=== PATIENT | male | born 1960 | race Caucasian/White ===

== ENCOUNTER 2019-12-27 09:30 | Inpatient (IN) | payer SELFPAY ==
[~2019-12-27] VITALS: Ht 180.3 cm; Wt 99.0 kg
[2019-12-27 10:25] LABS: Basophils # (auto) 0.1 10 ^3/uL (0-0.2); Basophils % (auto) 0.6 % (0.0-2.0); Eosinophils # (auto) 0 10 ^3/uL (0-0.8); Eosinophils % (auto) 0.1 % (0.0-7.0); Hemoglobin 17.6 g/dL (13.5-17.5); Lymphocytes # (auto) 1.5 10 ^3/uL (0.4-5.4); Lymphocytes % (auto) 8.5 % (10.0-50.0); Mean Corpuscular Hemoglobin 30.8 pg (28.0-32.0); Mean Corpuscular Hgb Conc. 33.8 g/dL (32.0-36.0); Mean Corpuscular Volume 91.2 fL (80.0-100.0); Neutrophils # (auto) 14.8 10 ^3/uL (1.6-8.6); Neutrophils % (auto) 84.8 % (37.0-80.0); Platelet Count (auto) 284 10^3/uL (140-450); Red Blood Cells 5.71 10^6/uL (4.5-5.90); Red Cell Distribution Width 13.5 % (11.8-14.3); White Blood Cell 17.4 10^3/uL (4.4-10.8)
[2019-12-27] MEDS ORDERED: SODIUM CHLORIDE 0.9% 1,000 ML IV ONE ×2 (10:32)
[2019-12-27 10:33] LABS: Calcium 9.3 mg/dL (8.5-10.1); Potassium 3.7 mmol/L (3.5-5.1)
[2019-12-27 10:36] LABS: BUN/Creatinine Ratio 16.4; Bilirubin, Total 2.3 mg/dL (0.2-1.0); Total Protein 7.9 g/dL (6.4-8.2)
[2019-12-27] MEDS ORDERED: cefTRIAXone 1GM/50ML D5W 50 ML IV ONE (10:45)
[2019-12-27] MEDS ORDERED: KETOROLAC TROMETH 30 MG/ML 1ML VIAL IV ONE (10:45)
[2019-12-27] MEDS ORDERED: metroNIDAZOLE 500MG/100ML 100 ML IV ONE (10:45)
[2019-12-27 10:49] LABS: Urine Bacteria NONE SEEN /hpf (None Seen); Urine Blood 2+ /uL (Negative); Urine Mucus FEW (None Seen); Urine Specific Gravity 1.029 (1.001-1.035); Urine WBC 2 /hpf (0 - 3)
[2019-12-27] MEDS ORDERED: ACETAMINOPHEN 500 MG TAB PO PRN (12:45)
[2019-12-27] MEDS ORDERED: NITROGLYCERIN 0.4 MG SL TAB SL PRN (12:45)
[2019-12-27] MEDS ORDERED: MORPHINE SULF INJ 2 MG/ML SYRINGE 1ML IV PRN ×2 (12:45)
[2019-12-27] MEDS ORDERED: HYDROcodone-ACET 5/325MG TAB PO PRN (12:45)
[2019-12-27] MEDS: TAMSULOSIN HYDROCHLORIDE 0.4 MG CAP PO SCH ×3 (12:58→18:22)
[2019-12-27] MEDS: SODIUM CHLORIDE 0.9% 1,000 ML IV SCH ×2 (12:58→21:19)
[2019-12-27 17:00] VITALS: BP 144/97
[2019-12-27] MEDS: ONDANSETRON HCL 4 MG/2 ML VIAL IV PRN (19:23)
[2019-12-27] MEDS: DOCUSATE SOD 100 MG CAP PO SCH (21:22)
[2019-12-27 22:00] VITALS: BP 150/90
[2019-12-28 05:00] VITALS: BP 148/85
[2019-12-28 06:44] LABS: Basophils # (auto) 0 10 ^3/uL (0-0.2); Basophils % (auto) 0.2 % (0.0-2.0); Eosinophils # (auto) 0 10 ^3/uL (0-0.8); Eosinophils % (auto) 0.3 % (0.0-7.0); Hematocrit 46.5 % (41.0-53.0); Hemoglobin 15.6 g/dL (13.5-17.5); Lymphocytes # (auto) 1.9 10 ^3/uL (0.4-5.4); Lymphocytes % (auto) 16.2 % (10.0-50.0); Mean Corpuscular Hemoglobin 30.9 pg (28.0-32.0); Mean Corpuscular Hgb Conc. 33.6 g/dL (32.0-36.0); Mean Corpuscular Volume 91.8 fL (80.0-100.0); Monocytes % (auto) 8.1 % (0.0-12.0); Neutrophils # (auto) 8.8 10 ^3/uL (1.6-8.6); Neutrophils % (auto) 75.2 % (37.0-80.0); Nucleated Red Blood Cells % 0.2 %; Platelet Count (auto) 239 10^3/uL (140-450); Red Blood Cells 5.06 10^6/uL (4.5-5.90); Red Cell Distribution Width 13.1 % (11.8-14.3); White Blood Cell 11.7 10^3/uL (4.4-10.8)
[2019-12-28] MEDS: SODIUM CHLORIDE 0.9% 1,000 ML IV SCH ×5 (06:59→23:11)
[2019-12-28 07:04] LABS: BUN/Creatinine Ratio 15.9; Calcium 8.1 mg/dL (8.5-10.1); Potassium 3.7 mmol/L (3.5-5.1)
[2019-12-28 09:00] VITALS: BP 132/86
[2019-12-28] MEDS: cefTRIAXone 1GM/50ML D5W 50 ML IV SCH (10:24)
[2019-12-28] MEDS: FAMOTIDINE 20 MG TAB PO SCH (10:24)
[2019-12-28] MEDS: DOCUSATE SOD 100 MG CAP PO SCH ×2 (10:24→21:31)
[2019-12-28 13:00] VITALS: BP 158/93
[2019-12-28 14:43] LABS: INR 1.01 (0.9-1.15)
[2019-12-28] MEDS ORDERED: MANNITOL FTV 25% 12.5 GM/50 ML 50 ML IV ONE (15:30)
[2019-12-28] MEDS ORDERED: IBUP800T24 PO (15:44)
[2019-12-28] MEDS ORDERED: MULTTAB61 PO (15:45)
[2019-12-28 16:41] VITALS: BP_SYST 138; BP_SYST 160; BP_DIAS 41; BP_DIAS 98
[2019-12-28] MEDS: TAMSULOSIN HYDROCHLORIDE 0.4 MG CAP PO SCH (18:22)
[2019-12-28] MEDS ORDERED: KETOROLAC TROMETH 30 MG/ML 1ML VIAL IV PRN (19:00)
[2019-12-28] MEDS ORDERED: hydrALAZINE HCL 20 MG/ML VL IV PRN (19:00)
[2019-12-28 21:22] LABS: BUN/Creatinine Ratio 14.9; Calcium 8.1 mg/dL (8.5-10.1); Potassium 3.8 mmol/L (3.5-5.1)
[2019-12-28 22:00] VITALS: BP 136/84
[2019-12-29] MEDS: ONDANSETRON HCL 4 MG/2 ML VIAL IV PRN (03:35)
[2019-12-29] MEDS: SODIUM CHLORIDE 0.9% 1,000 ML IV SCH ×6 (04:36→18:02)
[2019-12-29 05:00] VITALS: BP 135/83
[2019-12-29] MEDS: cefTRIAXone 1GM/50ML D5W 50 ML IV SCH (08:51)
[2019-12-29 09:00] VITALS: BP 124/81
[2019-12-29] MEDS: amLODIPine BESYLATE 5 MG TAB PO SCH (10:00)
[2019-12-29] MEDS: FAMOTIDINE 20 MG TAB PO SCH (10:00)
[2019-12-29] MEDS: DOCUSATE SOD 100 MG CAP PO SCH ×2 (10:00→21:42)
[2019-12-29] MEDS ORDERED: ceFAZolin 1GM/50ML 50 ML IV ONE (12:42)
[2019-12-29] MEDS ORDERED: IOHEXOL 300 MG/ML 100ML BOTTLE IJ ONE (13:11)
[2019-12-29] MEDS ORDERED: PROPOFOL 10 MG/ML 20 ML IV ONE (13:21)
[2019-12-29] MEDS ORDERED: MIDAZOLAM HCL 1MG/1ML-2 ML VIAL ONE (13:34)
[2019-12-29] MEDS ORDERED: MEPERIDINE HCL (25 MG/ML) 1ML VIAL ONE (13:34)
[2019-12-29] MEDS ORDERED: fentaNYL CITRATE 100 MCG/2 ML VL ONE (13:34)
[2019-12-29] MEDS ORDERED: LABETALOL HCL 5 MG/ML 4ML SYRINGE IV PRN (14:30)
[2019-12-29] MEDS ORDERED: HYDROmorphone HCL 2 MG/ML VL IV PRN (14:30)
[2019-12-29] MEDS ORDERED: ePHEDrine SULFATE 50 MG/ML AMP IV PRN (14:30)
[2019-12-29] MEDS ORDERED: ONDANSETRON HCL 4 MG/2 ML VIAL IV PRN (14:30)
[2019-12-29] MEDS ORDERED: MORPHINE SULFATE 4 MG/ML SYR/VIAL IV PRN (14:30)
[2019-12-29] MEDS ORDERED: KETOROLAC TROMETH 30 MG/ML 1ML VIAL IV ONE (14:30)
[2019-12-29 16:39] VITALS: BP 134/85
[2019-12-29] MEDS: TAMSULOSIN HYDROCHLORIDE 0.4 MG CAP PO SCH (18:02)
[2019-12-29 22:00] VITALS: BP 143/89
[2019-12-30] MEDS: SODIUM CHLORIDE 0.9% 1,000 ML IV SCH ×4 (04:12→12:32)
[2019-12-30 05:00] VITALS: BP 132/82
[2019-12-30] MEDS: cefTRIAXone 1GM/50ML D5W 50 ML IV SCH (08:57)
[2019-12-30] MEDS: FAMOTIDINE 20 MG TAB PO SCH (08:57)
[2019-12-30] MEDS: amLODIPine BESYLATE 5 MG TAB PO SCH (08:58)
[2019-12-30] MEDS: DOCUSATE SOD 100 MG CAP PO SCH (08:58)
[2019-12-30 09:00] VITALS: BP 137/84
[2019-12-30 12:48] VITALS: BP 137/84
== END 2019-12-30 13:45 | disposition home or self-care (01) | DRG 872 ==
LOC: ER 09:30 → OVERFLOW 09:31 → WEST WING 15:38
PROVIDERS: ADMIT Nurse Practitioner Acute Care; ATTEND Family Medicine
PROC: 0TF7XZZ Fragmentation in Left Ureter, External Approach (ICD-10-PCS; principal; 2019-12-29 13:31)
DX: A41.9 Sepsis, unspecified organism (principal); N13.6 Pyonephrosis; D72.829 Elevated white blood cell count, unspecified; E86.0 Dehydration; I12.9 Hypertensive chronic kidney disease with stage 1 through stage 4 chronic kidney disease, or unspecified chronic kidney disease; N18.3 Chronic kidney disease, stage 3 (moderate); F12.10 Cannabis abuse, uncomplicated; Z79.899 Other long term (current) drug therapy
CPT/HCPCS: 36415; 71045; 74176; 80048; 80053; 81001; 83605; 83690; 85025; 85610; 85730; 87040; 87086; 96365; 96368; 96375; 99291; G0378; J0690; J0696; J1885; J2250; J2405; J2704; J3490

== ENCOUNTER 2021-04-02 18:20 | Emergency (ER) | payer SELFPAY ==
[~2021-04-02] VITALS: Ht 177.8 cm; Wt 100.7 kg
[~2021-04-02 18:20] MED LIST: IBUP800T27 PO; MULT-1018 PO
[2021-04-02 19:54] VITALS: BP 132/100
== END 2021-04-02 21:50 | disposition home or self-care (01) ==
LOC: ER 18:21
DX: S02.31XA Fracture of orbital floor, right side, initial encounter for closed fracture (principal); S00.11XA Contusion of right eyelid and periocular area, initial encounter; S50.812A Abrasion of left forearm, initial encounter; S00.31XA Abrasion of nose, initial encounter; F12.10 Cannabis abuse, uncomplicated; Y08.89XA Assault by other specified means, initial encounter; Y93.89 Activity, other specified; Y92.89 Other specified places as the place of occurrence of the external cause; Y99.8 Other external cause status
CPT/HCPCS: 70450; 70486